=== PATIENT | male | born 1975 | race Caucasian/White ===

== ENCOUNTER → 2019-02-22 | Outpatient (CLI) | payer OTHER ==
--- NOTE | 2019-02-23 23:07 | SLE ---
[facility] [place] [address] POLYSOMNOGRAPHY STUDY Name: LEON KNIGHT Room #: REG [facility]#: [id number] Admission: 02/22/19 ������������������ Attend Phys: Marcial Huff MD Discharge: ������������������ Date of : 73 Report #: [id number] THIS REPORT FOR: //name// CC: Marcial Huff [facility] physician/PCP Bishnu Pascal MD DATE OF SERVICE: 02/22/2019 SLEEP STUDY ATTENDING PHYSICIAN: Dr. Bishnu Pascal. HISTORY: The patient is a 43-year-old who weighs 165 pounds with a BMI of 25.1. The patient's [place] score was 19. The patient underwent split night study performed at [facility]. During the night study, the patient spent 506 minutes in bed and slept for 402 minutes with a sleep efficiency of 79%. Sleep latency was 0.2 minutes, which was short with a REM latency of 187 minutes. Overall, sleep architecture showed increased stage 1 and stage 2 sleep, absent slow wave and reduced REM sleep, which was 13% of the total sleep time. During the initial diagnostic portion of the study, the patient slept for 192 minutes. During that time, the patient had 25 obstructive apneas, 2 mixed apneas, no central apneas and 46 hypopneas. The patient's apnea hypopnea index was 22.8 per hour with a REM index of 48 per hour. The patient's supine index was 98 per hour. EKG monitoring revealed an average heart rate of 72 beats per minute. No sustained arrhythmias observed. PLMS were seen at an index of 67 per hour and 12 per hour caused EEG arousals. Nocturnal oximetry study revealed an average oxygen saturation of 96% with a lowest of 84%. Two minutes were spent in oxygen saturation less than 89%. The patient met the criteria for CPAP initiation. It was started at 5 cm water and titrated up to 13 cm water. At the final pressure, the patient slept for 103 minutes including 35 minutes of lateral REM sleep. The patient's AHI was reduced to 1.7 per hour and oxygen saturations remained above 95%. IMPRESSION: 1. Moderate sleep apnea-hypopnea syndrome with worsening during supine and rapid eye movement sleep. Total apnea hypopnea index of 22.8 per hour with a [facility] [address] [place] [address] POLYSOMNOGRAPHY STUDY Name: EUGENELEON BROOKLYN [id number] Admission: 02/22/19 ������������������ Attend Phys: Marcial Huff MD Discharge: ������������������ Date of : 73 Report #: [id number] rapid eye movement apnea hypopnea index of 48 per hour and a supine apnea hypopnea index of 98 per hour. 2. No clinically significant nocturnal hypoxia. 3. Severe periodic limb movements, which did improve to moderate periodic limb movement of sleep at an index of 39 per hour while the patient slept on continuous positive airway pressure. RECOMMENDATIONS: 1. CPAP at 13 cm water completely eliminated the patient's sleep apnea and should be used on a nightly basis. 2. Follow up in 4-6 weeks to assess compliance with CPAP and to document clinical improvement. 3. Avoid [employer] depressants. 4. Cautioned regarding driving until symptoms of sleep apnea resolve with the use of CPAP. 5. PLMS does not need to be treated unless the patient has symptoms of restless legs during the day. 6. Avoid supine sleep. ��������������������������������������������� <ELECTRONICALLY SIGNED> ���������������������������������������� By: Marcial Huff MD ��������������������������������������������� 02/23/19 [id number] Marcial Huff MD /nt
== END ==
LOC: SLEEPLAB
DX: G47.33 Obstructive sleep apnea (adult) (pediatric) (principal); G47.34 Idiopathic sleep related nonobstructive alveolar hypoventilation